=== PATIENT | female | born 1945 | race Hispanic/Latino ===

== ENCOUNTER → 2019-03-06 | Outpatient (CLI) | payer OTHER ==
[~2019-03-06] MED LIST: DOCU-282 PO; LISI-613 PO; TRAM50TA4 PO; [UNRECOGNIZED DRUG - OTHER] PO
== END | disposition home or self-care (01) ==
LOC: SHCH 09:42
PROVIDERS: ATTEND Internal Medicine Cardiovascular Disease
DX: I87.2 Venous insufficiency (chronic) (peripheral) (principal); I10 Essential (primary) hypertension
CPT/HCPCS: 93970

== ENCOUNTER → 2024-08-13 | Outpatient (CLI) | payer OTHER ==
[~2024-08-13] MED LIST changes: -LISI-613 PO; +LISI20TA24 PO
== END | disposition home or self-care (01) ==
LOC: RAH 12:50
PROVIDERS: ATTEND Internal Medicine
DX: R94.4 Abnormal results of kidney function studies (principal)
CPT/HCPCS: 76770

== ENCOUNTER → 2025-09-09 | Outpatient (CLI) | payer OTHER ==
--- NOTE | 2025-09-10 01:24 | HMCIMG ---
EXAM: MR right Lower Extremity Without Intravenous Contrast, Knee. CLINICAL HISTORY: Pain in the right knee. TECHNIQUE: Multiplanar magnetic resonance images of the right knee without intravenous contrast. CONTRAST: Without COMPARISON: None provided. FINDINGS: LIGAMENTS: ANTERIOR CRUCIATE: Thickening with intrasubstance edema is present involving the posteromedial and the anterolateral bundles of the anterior cruciate ligament, suggestive of myxoid changes. POSTERIOR CRUCIATE: Thickening with intrasubstance edema involving the posterior cruciate ligament, suggestive of myxoid changes. There is a slightly displaced fracture of the tibial insertion of the posterior cruciate ligament, consistent with avulsion fracture of the PCL from the tibial insertion. LATERAL COLLATERAL: Mild myxoid changes of the fibular collateral ligament near its femoral insertion, without tear. MEDIAL COLLATERAL: The superficial component of the medial collateral ligament is unremarkable. TENDONS: QUADRICEPS: Intact. PATELLAR: Intact. LATERAL GASTROCNEMIUS: Intact. MEDIAL GASTROCNEMIUS: Intact. ILIOTIBIAL BAND: Intact. POPLITEUS: Intact. BONES: Marginal osteophytes are present on the medial, lateral tibial and femoral condyles, superior and inferior poles of the patella with spiking of the tibial intercondylar eminence. There is a slightly displaced fracture of the tibial insertion of the posterior cruciate ligament, consistent with avulsion fracture of the PCL from the tibial insertion. The bone marrow signal intensity of the visualized bones is unremarkable. MUSCLES: Unremarkable. FLUID: Mild knee joint synovial effusion. CARTILAGE: Unremarkable. 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 The medial meniscus is slightly extruded out of the joint compartment. Associated mucoid changes of the medial meniscotibial and meniscofemoral ligaments are present. RETINACULUM: No tear. SOFT TISSUES: Subcutaneous edema is present along the anterolateral aspect of the knee. IMPRESSION: 1. Slightly displaced avulsion fracture of the tibial insertion of the posterior cruciate ligament. 2. 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 3. 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 4. Mild knee joint synovial effusion. [facility]
== END | disposition home or self-care (01) ==
LOC: RAH 10:18
PROVIDERS: ATTEND Internal Medicine
DX: S83.241A Other tear of medial meniscus, current injury, right knee, initial encounter (principal); M25.561 Pain in right knee; M17.11 Unilateral primary osteoarthritis, right knee; M25.461 Effusion, right knee; R60.0 Localized edema; M25.761 Osteophyte, right knee; X58.XXXA Exposure to other specified factors, initial encounter; Y93.89 Activity, other specified; Y92.89 Other specified places as the place of occurrence of the external cause; Y99.8 Other external cause status
CPT/HCPCS: 73721